=== PATIENT | female | born 1985 | race Caucasian/White ===

== ENCOUNTER 2017-06-17 22:10 | Emergency (ER) | payer MEDICAID ==
[2017-06-17 22:34] VITALS: BP 114/76
--- NOTE | 2017-06-17 22:55 | EDM.PDOC ---
ED HPI GENERAL MEDICAL PROBLEM - General Chief Complaint: ENT Problem Stated Complaint: EAR PAIN Time Seen by Provider: 06/17/17 22:45 Source of Information: Reports: Patient History Limitations: Reports: No Limitations - History of Present Illness INITIAL COMMENTS - FREE TEXT/NARRATIVE: 31-year-old female with bilateral ear pain for several days, started developing some drainage out of the left ear. She has chronic recurring otitis externa and media. No fevers or chills. 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: Endometriosis, Spontaneous Oncologic (Cancer) History: Reports: Thyroid - Infectious Disease History Infectious Disease History: Reports: Chicken Pox - Past Surgical History GI Surgical History: Reports: Cholecystectomy, Other (See Below) Other GI Surgeries/Procedures: lap surgery Female Surgical History: Reports: Other (See Below) Endocrine Surgical History: Reports: Thyroidectomy Musculoskeletal Surgical History: Reports: Shoulder Surgery Social & Family History - Tobacco Use Smoking Status *Q: Current Some Day Smoker Years of Tobacco use: 1 Packs/Tins Daily: 0.5 Used Tobacco, but Quit: No - Caffeine Use Caffeine Use: Reports: Tea - Recreational Drug Use Recreational Drug Use: No ED ROS ENT - Review of Systems Review Of Systems: See Below Constitutional: Denies: Fever, Chills HEENT: Reports: Ear Pain, Eye Discharge Respiratory: Denies: Shortness of Breath Cardiovascular: Denies: Chest Pain GI/Abdominal: Denies: Abdominal Pain, Nausea, Vomiting Neurological: Reports: Headache ED EXAM, ENT - Physical Exam Exam: See Below Exam Limited By: No Limitations General Appearance: Alert, No Apparent Distress Ears: Hearing Loss, Auricular Tenderness, Canal Discharge, Canal Material. No: Mastoid Swelling Respiratory/Chest: No Respiratory Distress Course - Vital Signs Last Recorded V/S: Last Vital Signs Temp 98.2 F 06/17/17 22:32 Pulse 101 H 06/17/17 22:32 Resp 16 06/17/17 22:32 BP 114/76 06/17/17 22:32 Pulse Ox 98 06/17/17 22:32 - Re-Assessments/Exams Free Text/Narrative Re-Assessment/Exam: 06/17/17 22:53 This patient has bilateral otitis externa and very possibly otitis media as well but I am unable to see the tympanic membranes. She'll be placed on Augmentin 875 mg twice daily for 7-10 days and is also offered Cortisporin ear drops. She'll take those 3-4 times daily for at least 4-6 days. She can recheck in the next 2-3 days if not improving. Departure - Departure Time of Disposition: 23:04 Disposition: Home, Self-Care 01 Condition: Good Clinical Impression: Otitis externa Qualifiers: Otitis externa type: diffuse Chronicity: acute Laterality: bilateral Qualified Code(s): H60.313 - Diffuse otitis externa, bilateral - Discharge Information Instructions: Otitis Externa, [id number] Referrals: PCP,None [Primary Care Provider] - Forms: ED Department Discharge Care Plan Goals: Take antibiotic twice daily for at least 7 days with food. Put 3 drops in each ear 3 times daily for at least 4-6 days. Ibuprofen or naproxen should help with pain and return in 3-4 days if not improving or anytime sooner if worsening.
== END 2017-06-17 23:03 | disposition home or self-care (01) ==
LOC: JP.ED 22:10
DX: H60.313 Diffuse otitis externa, bilateral (principal); E89.0 Postprocedural hypothyroidism; F17.210 Nicotine dependence, cigarettes, uncomplicated; Z90.49 Acquired absence of other specified parts of digestive tract; Z98.890 Other specified postprocedural states; Z79.899 Other long term (current) drug therapy; Z88.5 Allergy status to narcotic agent
CPT/HCPCS: 99283

== ENCOUNTER 2019-01-17 03:34 | Emergency (ER) | payer MEDICAID ==
[2019-01-17 03:49] VITALS: BP 133/82
[2019-01-17] MEDS ORDERED: Ketorolac 60 MG/2 ML SDV IM ONE (03:57)
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
--- NOTE | 2019-01-17 04:52 | CRLCR ---
INDICATION: trauma TECHNIQUE: Right ankle 2 views. COMPARISON: None. FINDINGS: Bones: Alignment is normal. No fractures or bone lesions. Joint spaces: Unremarkable. Soft tissues: Unremarkable. IMPRESSION: Unremarkable right ankle. Dictated by: Vladimir Diaz MD @ 01/17/2019 04:52:20 (Electronically Signed)
--- NOTE | 2019-01-17 04:52 | CRLCR ---
INDICATION: trauma TECHNIQUE: Right tibia and fibula 2 views. COMPARISON: None. FINDINGS: Bones: Alignment is normal. No fractures or bone lesions. Joint spaces: Unremarkable. Soft tissues: Unremarkable. IMPRESSION: Unremarkable right tibia and fibula. Dictated by: Vladimir Diaz MD @ 01/17/2019 04:51:48 (Electronically Signed)
[2019-01-17] MEDS ORDERED: HYDROmorphone 1 MG/ML Syringe IM ONE (04:54)
== END 2019-01-17 05:15 | disposition home or self-care (01) ==
LOC: JP.ED 03:34
DX: S80.11XA Contusion of right lower leg, initial encounter (principal); S09.90XA Unspecified injury of head, initial encounter; F17.210 Nicotine dependence, cigarettes, uncomplicated; Z88.5 Allergy status to narcotic agent; W22.8XXA Striking against or struck by other objects, initial encounter
CPT/HCPCS: 73590; 73600; 96372; 99283; J1170; J1885

== ENCOUNTER 2019-05-02 23:01 | Emergency (ER) | payer MEDICAID, OTHER ==
[2019-05-02 23:35] VITALS: BP 104/71; PULSE 98
[2019-05-03] MEDS ORDERED: Acetaminophen/oxyCODONE 325-5 MG Tab PO ONE (00:10)
[2019-05-03] MEDS ORDERED: Lidocaine 1% 20 ML MDV INJECT ONE (00:38)
[2019-05-03] MEDS ORDERED: Amoxicillin/Clavulanate K 875-125 MG Tab PO ONE (01:19)
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
== END 2019-05-03 02:02 | disposition home or self-care (01) ==
LOC: JP.ED 23:01
DX: S51.851A Open bite of right forearm, initial encounter (principal); S41.152A Open bite of left upper arm, initial encounter; F17.210 Nicotine dependence, cigarettes, uncomplicated; Z88.5 Allergy status to narcotic agent; Z79.899 Other long term (current) drug therapy; W54.0XXA Bitten by dog, initial encounter
CPT/HCPCS: 99282; A9270; J2001; 99283

== ENCOUNTER 2024-05-18 18:25 | Emergency (ER) | payer MEDICARE, MEDICAID ==
[2024-05-18 18:59] VITALS: BP 116/85; PULSE 94
== END 2024-05-18 20:27 | disposition home or self-care (01) ==
LOC: JP.ED 18:25
DX: S80.01XA Contusion of right knee, initial encounter (principal); S60.022A Contusion of left index finger without damage to nail, initial encounter; S60.021A Contusion of right index finger without damage to nail, initial encounter; Z87.891 Personal history of nicotine dependence; Z90.49 Acquired absence of other specified parts of digestive tract; Z90.710 Acquired absence of both cervix and uterus; Z79.899 Other long term (current) drug therapy; Z88.5 Allergy status to narcotic agent; W19.XXXA Unspecified fall, initial encounter
CPT/HCPCS: 73140-26-F1; 73140-26-F6; 73140-F1; 73140-F6; 73562-26-RT; 73562-RT; 99283